=== PATIENT | male | born 1980 | race Caucasian/White ===

== ENCOUNTER 2022-12-12 14:53 | Emergency (ER) | payer MEDICAID ==
[~2022-12-12] VITALS: Ht 185.4 cm; Wt 83.5 kg
[2022-12-12 14:58] VITALS: BP 116/78; PULSE 101; RESP 18; TEMP 96.9; O2SAT 98
[2022-12-12] MEDS ORDERED: CLINDAMYCIN 900MG/D5W PM 50 ML IV ONE (15:10)
[2022-12-12] MEDS ORDERED: NACL 0.9% 1,000 ML IV ONE (15:20)
[2022-12-12] MEDS ORDERED: ceFAZolin 1,000 MG VIAL ONE (15:26)
[2022-12-12 15:27] LABS: BASOPHILS # (AUTO) 0.1 K/uL (0.00-0.22); BASOPHILS % (AUTO) 0.5 % (0.0-2.0); EOSINOPHILS % (AUTO) 0.3 % (0.0-4.0); HEMATOCRIT 41.9 % (36-52); HEMOGLOBIN 14.6 g/dL (12.0-18.0); LYMPHOCYTES # (AUTO) 1.2 K/uL (2.0-11.5); LYMPHOCYTES % (AUTO) 10.6 % (20.5-51.1); MEAN CORPUSCULAR HEMOGLOBIN 29 pg (27-31); MEAN CORPUSCULAR HGB CONC 35 g/dL (33-37); MEAN CORPUSCULAR VOLUME 83.3 fL (80-94); MONOCYTES # (AUTO) 1.1 K/uL (0.8-1.0); MONOCYTES % (AUTO) 9.6 % (1.7-9.3); NEUTROPHILS # (AUTO) 8.8 K/uL (1.8-7.7); PLATELET COUNT (AUTO) 228 K/uL (140-450); RED BLOOD CELL COUNT(AUTO) 5.03 MIL/uL (4.20-6.10); RED CELL DISTRIBUTION WIDTH 13.1 % (11.6-13.7); WHITE BLOOD COUNT (AUTO) 11.2 K/uL (4.8-10.8)
[2022-12-12 15:47] LABS: ANION GAP 11.8 (8-16); CALCIUM 8.1 mg/dL (8.5-10.1); CARBON DIOXIDE 27.6 mmol/L (21-32); CREATININE 0.9 mg/dL (0.6-1.3); POTASSIUM 3.4 mmol/L (3.5-5.1); TOTAL BILIRUBIN 0.7 mg/dL (0.0-1.0); TOTAL PROTEIN, SERUM 7.2 g/dL (6.4-8.2)
[2022-12-12 15:51] LABS: LACTIC ACID 1.2 mmol/L (0.4-2.0)
[2022-12-12] MEDS ORDERED: CLIN-25 PO (16:07)
[2022-12-12] MEDS ORDERED: ACET-10509 PO (16:07)
[2022-12-12] MEDS ORDERED: IBUP-1842 PO (16:07)
[2022-12-12] MEDS ORDERED: CEPH-588 PO (16:07)
[2022-12-12 17:20] VITALS: BP 111/70; PULSE 65; RESP 14; O2SAT 98
== END 2022-12-12 17:25 | disposition home or self-care (01) ==
LOC: MED 14:53
DX: L03.116 Cellulitis of left lower limb (principal); Z79.899 Other long term (current) drug therapy
CPT/HCPCS: 36415; 73590; 80053; 83605; 85025; 87040; 96365; 96368; 99284; J0690; J7030; Q0092; 96367